=== PATIENT | female | born 1955 | race Caucasian/White ===

== ENCOUNTER 2018-06-11 13:04 | Day surgery (SDC) | payer MEDICARE, MEDICAID ==
[~2018-06-11] VITALS: Ht 167.6 cm; Wt 122.7 kg
[2018-06-11] MEDS ORDERED: fentaNYL/PF 50MCG/1 ML 2ML syringe ONE (13:15)
[2018-06-11] MEDS ORDERED: MIDAZolam 5mg/5ml vial ONE (13:15)
[2018-06-11] MEDS ORDERED: LIDOcaine Viscous 15ml cup ONE (13:15)
[2018-06-11 13:20] VITALS: BP 143/78
[2018-06-11] MEDS ORDERED: ATEN25TA PO (13:25)
[2018-06-11] MEDS ORDERED: BUPR300T54 PO (13:25)
[2018-06-11] MEDS ORDERED: [UNRECOGNIZED DRUG - OTHER] (13:30)
[2018-06-11] MEDS ORDERED: CYCL-1 PO (13:32)
[2018-06-11] MEDS ORDERED: LISI1TAB9 PO (13:33)
[2018-06-11] MEDS ORDERED: ESTR1TAB19 PO (13:33)
[2018-06-11] MEDS ORDERED: HYDR-4353 PO (13:34)
[2018-06-11 14:06] VITALS: BP 140/80
[2018-06-11 14:36] VITALS: BP 147/60
[2018-06-11 14:46] VITALS: BP 139/63
[2018-06-11 14:56] VITALS: BP 145/61
== END 2018-06-11 15:06 | disposition home or self-care (01) ==
LOC: GI LAB 13:04
PROVIDERS: ATTEND Internal Medicine Gastroenterology
DX: D12.0 Benign neoplasm of cecum (principal); K57.30 Diverticulosis of large intestine without perforation or abscess without bleeding; K29.50 Unspecified chronic gastritis without bleeding; D50.9 Iron deficiency anemia, unspecified; K29.80 Duodenitis without bleeding; K31.89 Other diseases of stomach and duodenum; M79.7 Fibromyalgia; I10 Essential (primary) hypertension; Z90.49 Acquired absence of other specified parts of digestive tract; Z90.710 Acquired absence of both cervix and uterus; Z86.69 Personal history of other diseases of the nervous system and sense organs; Z90.89 Acquired absence of other organs; Z79.891 Long term (current) use of opiate analgesic; Z98.890 Other specified postprocedural states; Z79.899 Other long term (current) drug therapy
CPT/HCPCS: 43239; 45385; 99153; G0500; J2250; J3010; J7030; 43251; 99152; A4620

== ENCOUNTER 2021-04-19 17:54 | Emergency (ER) | payer MEDICARE, MEDICAID ==
[~2021-04-19] VITALS: Ht 167.6 cm; Wt 96.2 kg
[~2021-04-19 17:54] MED LIST: ATEN25TA PO; BUPR300T99 PO; CYCL-1 PO; ESTR1TAB19 PO; HYDR-4353 PO; LISI1TAB32 PO; [UNRECOGNIZED DRUG - OTHER]
[2021-04-19 18:25] LABS: BASOPHILS # (AUTO) 0.1 X10'3 (0-0.2); BASOPHILS % (AUTO) 0.8 % (0-1); EOSINOPHILS # (AUTO) 0.1 X10'3 (0-0.9); EOSINOPHILS % (AUTO) 0.7 % (0-6); HEMATOCRIT 41.4 % (35.0-45.0); HEMOGLOBIN 13.9 g/dl (12.0-16.0); LYMPHOCYTES # (AUTO) 1.3 X10'3 (1.1-4.8); LYMPHOCYTES % (AUTO) 16.7 % (21-51); MEAN CORPUSCULAR HEMOGLOBIN 30.5 PG (27.0-31.0); MEAN CORPUSCULAR HGB CONC 33.6 g/dL (33.0-36.5); MEAN CORPUSCULAR VOLUME 90.7 FL (78-98); MEAN PLATELET VOLUME 9.6 FL (7.4-10.4); MONOCYTES # (AUTO) 0.9 X10'3 (0-0.9); MONOCYTES % (AUTO) 11.8 % (2-12); NEUTROPHILS # (AUTO) 5.6 X10'3 (1.8-7.7); PLATELET COUNT 179 X10'3 (140-440); RED BLOOD COUNT 4.56 X10'6 (4.20-5.60); WHITE BLOOD COUNT 7.9 X10'3 (4.5-11.0)
[2021-04-19 18:47] LABS: ALANINE AMINOTRANSFERASE 19 U/L (12-78); ALBUMIN 3.8 G/DL (3.4-5.0); ALBUMIN/GLOBULIN RATIO 0.9 (1.1-1.5); ALKALINE PHOSPHATASE 55 IU/L (46-116); ANION GAP 10 (8-16); ASPARTATE AMINO TRANSFERASE 17 U/L (10-37); BILIRUBIN,TOTAL 0.5 MG/DL (0.1-1.0); BLOOD UREA NITROGEN 15 MG/DL (7-18); BUN/CREATININE RATIO 16.7 (6.6-38.0); CALCIUM 9.1 MG/DL (8.5-10.1); CHLORIDE 104 MMOL/L (99-107); GLUCOSE 90 MG/DL (70-104); LIPASE 105 U/L (73-393); POTASSIUM 4.2 MMOL/L (3.5-5.1); SODIUM 141 MMOL/L (135-145); TOTAL CARBON DIOXIDE 27.3 MMOL/L (24-32); TOTAL PROTEIN 7.9 G/DL (6.4-8.2); eGFR 63 ML/MIN
[2021-04-19 19:12] LABS: CLARITY,URINE SLIGHTLY CLOUDY (Clear); COLOR,URINE YELLOW (Yellow); GLUCOSE, URINE NEGATIVE (Neg); KETONES,URINE NEGATIVE (Neg); LEUKOCYTE ESTERASE ,URINE NEGATIVE (Neg); NITRITES, URINE NEGATIVE (Neg); OCCULT BLOOD,URINE TRACE-INTACT (Neg); PROTEIN,URINE NEGATIVE (Neg)
[2021-04-19 19:19] LABS: UA COLLECTION TYPE CLN CATCH MIDSTREAM
[2021-04-19] MEDS ORDERED: iohexol 300mg/ml 100ml inj. ONE (19:20)
[2021-04-19 19:22] LABS: BACTERIA,URINE NONE SEEN /HPF (Neg); RBC,URINE 0-2 /HPF (0-2); SQUAMOUS EPITHELIAL CELL,UR NONE SEEN /LPF (FEW); WBC,URINE 0-4 /HPF (0-4)
--- NOTE | 2021-04-19 20:16 | NUR ---
ED provider at bedside for patient reassessment and discussion of plan of care.
[2021-04-19] MEDS ORDERED: amox tr/potassium clavulanate 875/125mg TAB PO ONE (20:20)
[2021-04-19] MEDS ORDERED: AMOX-422 PO (20:22)
[2021-04-19 20:35] VITALS: BP 114/72
== END 2021-04-19 20:36 | disposition home or self-care (01) ==
LOC: ER 17:55
DX: K57.92 Diverticulitis of intestine, part unspecified, without perforation or abscess without bleeding (principal); R10.31 Right lower quadrant pain; Z90.49 Acquired absence of other specified parts of digestive tract; Z98.891 History of uterine scar from previous surgery; Z90.710 Acquired absence of both cervix and uterus; Z91.040 Latex allergy status; Z79.899 Other long term (current) drug therapy
CPT/HCPCS: 36415; 74177; 80053; 81001; 83690; 85025; 99285; Q9967

== ENCOUNTER 2023-06-09 17:56 | Emergency (ER) | payer MEDICARE, MEDICAID ==
[~2023-06-09] VITALS: Ht 165.1 cm; Wt 122.7 kg
[~2023-06-09 17:56] MED LIST changes: -LISI1TAB32 PO; +LISI1TAB49 PO
[2023-06-09] MEDS ORDERED: oxymetazoline 15 ML nasal spray NS ONE (18:40)
[2023-06-09 19:32] LABS: BASOPHILS # (AUTO) 0.1 X10'3 (0-0.2); BASOPHILS % (AUTO) 1.1 % (0-1); EOSINOPHILS # (AUTO) 0.1 X10'3 (0-0.9); EOSINOPHILS % (AUTO) 1.9 % (0-6); HEMATOCRIT 38.5 % (35.0-45.0); HEMOGLOBIN 13.2 g/dl (12.0-16.0); LYMPHOCYTES # (AUTO) 1.5 X10'3 (1.1-4.8); LYMPHOCYTES % (AUTO) 27.4 % (21-51); MEAN CORPUSCULAR HEMOGLOBIN 31.7 PG (27.0-31.0); MEAN CORPUSCULAR HGB CONC 34.2 g/dL (33.0-36.5); MEAN CORPUSCULAR VOLUME 92.9 FL (78-98); MONOCYTES # (AUTO) 0.7 X10'3 (0-0.9); MONOCYTES % (AUTO) 12.3 % (2-12); NEUTROPHILS % (AUTO) 57.3 % (42-75); PLATELET COUNT 184 X10'3 (140-440); RED BLOOD COUNT 4.15 X10'6 (4.20-5.60); RED CELL DISTRIBUTION WIDTH 15.3 % (11.5-14.5); WHITE BLOOD COUNT 5.3 X10'3 (4.5-11.0)
[2023-06-09 19:44] LABS: ALANINE AMINOTRANSFERASE 38 U/L (12-78); ALBUMIN 3.8 G/DL (3.4-5.0); ALBUMIN/GLOBULIN RATIO 0.9 (1.1-1.5); ALKALINE PHOSPHATASE 67 IU/L (46-116); ANION GAP 8 (8-16); ASPARTATE AMINO TRANSFERASE 31 U/L (10-37); BILIRUBIN,TOTAL 0.4 MG/DL (0.1-1.0); BLOOD UREA NITROGEN 15 MG/DL (7-18); BUN/CREATININE RATIO 13.6 (10.0-20.0); CALCIUM 9.7 MG/DL (8.5-10.1); CHLORIDE 103 MMOL/L (99-107); GLUCOSE 115 MG/DL (70-104); POTASSIUM 3.3 MMOL/L (3.5-5.1); SODIUM 140 MMOL/L (135-145); TOTAL CARBON DIOXIDE 29.3 MMOL/L (24-32); TOTAL PROTEIN 7.9 G/DL (6.4-8.2); eCRCL 45 ML/MIN; eGFR 50 ML/MIN
[2023-06-09 20:30] VITALS: BP 158/81; PULSE 94; RESP 18; TEMP 98; O2SAT 93
== END 2023-06-09 20:34 | disposition home or self-care (01) ==
LOC: ER 17:57
DX: R04.0 Epistaxis (principal); Z91.040 Latex allergy status; Z79.899 Other long term (current) drug therapy
CPT/HCPCS: 36415; 80053; 85025; 99283

== ENCOUNTER 2025-02-09 04:54 | Emergency (ER) | payer MEDICARE, MEDICAID ==
[~2025-02-09] VITALS: Ht 167.6 cm; Wt 110.0 kg
[~2025-02-09 04:54] MED LIST changes: +BUPR-551 PO; -BUPR300T99 PO
--- NOTE | 2025-02-09 05:31 | ELECTROCARDIOGRAPH REPORT ---
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
--- NOTE | 2025-02-09 06:46 | RADIOLOGY REPORT ---
EXAM: XR Chest, 1 View CLINICAL INDICATION: Pain TECHNIQUE: Frontal view of the chest. COMPARISON: No relevant prior studies available. FINDINGS: LUNGS AND PLEURAL SPACES: Unremarkable. No consolidation. No pneumothorax. HEART: Unremarkable. No cardiomegaly. MEDIASTINUM: Unremarkable. Normal mediastinal contour. BONES/JOINTS: Unremarkable. No acute fracture. IMPRESSION: No acute cardiopulmonary process.
[2025-02-09 07:55] LABS: BASOPHILS # (AUTO) 0.1 X10'3 (0-0.2); BASOPHILS % (AUTO) 1.2 % (0-1); EOSINOPHILS # (AUTO) 0.1 X10'3 (0-0.9); EOSINOPHILS % (AUTO) 1.1 % (0-6); HEMATOCRIT 35.8 % (35.0-45.0); HEMOGLOBIN 12.3 g/dl (12.0-16.0); LYMPHOCYTES # (AUTO) 1.4 X10'3 (1.1-4.8); LYMPHOCYTES % (AUTO) 27.5 % (21-51); MEAN CORPUSCULAR HEMOGLOBIN 30.6 PG (27.0-31.0); MEAN CORPUSCULAR HGB CONC 34.4 g/dL (33.0-36.5); MEAN PLATELET VOLUME 9.8 FL (7.4-10.4); MONOCYTES # (AUTO) 0.7 X10'3 (0-0.9); MONOCYTES % (AUTO) 13.4 % (2-12); NEUTROPHILS # (AUTO) 2.8 X10'3 (1.8-7.7); NEUTROPHILS % (AUTO) 56.8 % (42-75); PLATELET COUNT 151 X10'3 (140-440); RED BLOOD COUNT 4.03 X10'6 (4.20-5.60); RED CELL DISTRIBUTION WIDTH 14.1 % (11.5-14.5); WHITE BLOOD COUNT 4.9 X10'3 (4.5-11.0)
[2025-02-09 08:16] LABS: ALBUMIN 3.6 G/DL (3.4-5.0); ANION GAP 6 (8-16); BLOOD UREA NITROGEN 24 MG/DL (7-18); BUN/CREATININE RATIO 26.1 (10.0-20.0); CALCIUM 9.4 MG/DL (8.5-10.1); CHLORIDE 105 MMOL/L (99-107); CREATININE 0.92 MG/DL (0.40-0.90); GLUCOSE 102 MG/DL (70-104); POTASSIUM 3.3 MMOL/L (3.5-5.1); SODIUM 140 MMOL/L (135-145); TOTAL CARBON DIOXIDE 28.8 MMOL/L (24-32); eCRCL 55 ML/MIN; eGFR 61 ML/MIN
--- NOTE | 2025-02-09 08:33 | Physician Documentation ---
History of Present Illness ~ Chief Complaint: See Chief Complaint Stated Complaint: NEAR SYNCOPE Time Seen by MD: 08:21 Primary Medical Doctor: AIXA MEDINA AT [facility] Mode of Arrival: POV HPI 69-year-old female presenting for a near syncopal event. Patient states that last night she got up to go use the restroom and when she was on her feet she st arted feeling very lightheaded. She describes feeling a cold sensation pass over her and she felt like she was going to pass out. She did not actually lose consciousness and immediately sat down and then woke up her . She denies any chest pain, shortness of breath, fever, chills or any other associated symptoms. Currently she states that she feels tired but otherwise feels fine. Medication Reconciliation Allergies: Coded Allergies: latex (Verified Allergy, Unknown, 02/09/25) RASH Scheduled Atenolol (Atenolol), 1 TAB PO DAILY, (Reported) Bupropion HCl (Bupropion Xl), 1 TABLET PO QAM, (Reported) Estradiol (Estradiol), 1 TAB PO DAILY, (Reported) Hydrocodone Bit/Acetaminophen (Drew 10-325 Tablet), 1 TAB PO Q6H, (Reported) Lisinopril/Hydrochlorothiazide (Lisinopril-Hctz 10-12.5 mg Tab), 1 TAB PO DAILY, (Reported) [Trentalex], 20 MG QDAY, (Reported) Scheduled PRN Cyclobenzaprine* (Cyclobenzaprine*), 2 TABLET PO DAILY PRN for muscle spasms, (Reported) Past Medical History Past Medical History: *GI/HEPATOBILIARY* Past Surgical History: appendectomy, , hysterectomy Alcohol Use: None Drug Use: none Lives with: Family Lives In: Home Review of Systems All Other Systems at this time: Reviewed and Negative Physical Exam Vital Signs: Temperature: 96.3, Source: Temporal, Heart Rate: 59, Respiratory Rate: 16, BP: 124/51, Pulse Oximetry: 99, Weight: 110.000 Oxygen Flow Rate: 0 Physical Exam I have reviewed the triage vitals. CONST: Well developed and well nourished. In no acute distress HENT: Head Atraumatic EYES: Pupils are equal, round and reactive to light. Normal conjunctiva NECK: Normal range of motion. Supple. CARDIO: Normal rate and regular rhythm. No murmurs, rubs, or gallops. S1, S2. PULM/CHEST: No respiratory distress. Lungs clear to auscultation. No wheeze ABD: Soft and nontender. Nondistended. Bowel sounds normal. No guarding. : Exam deferred MSK: No edema. No deformity. NEURO: Alert and oriented to person, place and time. Moving all extremities SKIN: Warm and dry. PSYCH: Normal mood and affect. Good eye contact. Progress Results/Orders Results/Orders Orders - MICKEY RICHARDSON MD Ct Head (02/09/25 09:05) Completed Orders - MICKEY RICHARDSON MD Ct Head (02/09/25 09:05) Normal Saline 1000ml (Sodium Chloride 10 (02/09/25 08:30) Potassium Cl Sr Tablet (K-Dur Tablet) (02/09/25 08:29) Medications Received in ER Medications (Trade) Dose Ordered Sig/Juancho Route PRN Reason Start Time Stop Time Status Last Admin Dose Admin Sodium Chloride 1,000 ml @ 1,000 mls/hr ONCE ONCE IV 02/09/25 08:30 02/09/25 09:29 DC 02/09/25 09:56 1,000 MLS/HR (K-DUR tablet) 20 meq ONCE STAT PO 02/09/25 08:29 02/09/25 08:31 DC 02/09/25 09:56 20 MEQ Vital Signs 02/09/25 02/09/25 02/09/25 02/09/25 04:57 06:44 06:46 07:00 Temp 96.3 98.1 Pulse 59 59 62 Resp 15 18 16 19 B/P (MAP) 136/50 124/51 (75) 103/44 (63) Pulse Ox 100 99 94 O2 Flow Rate 0 0 02/09/25 02/09/25 02/09/25 02/09/25 07:30 08:00 08:30 09:00 Pulse 53 53 58 52 Resp 17 17 15 15 B/P (MAP) 106/50 (68) 106/53 (70) 102/43 (62) Pulse Ox 94 93 98 93 O2 Flow Rate 0 0 0 0 Laboratory Tests Test 02/09/25 07:19 02/09/25 10:41 White Blood Count 4.9 Red Blood Count 4.03 L Hemoglobin 12.3 Hematocrit 35.8 Mean Corpuscular Volume 89.0 Mean Corpuscular Hemoglobin 30.6 Mean Corpuscular Hemoglobin Concent 34.4 Red Cell Distribution Width 14.1 Platelet Count 151 Mean Platelet Volume 9.8 Neutrophils (%) (Auto) 56.8 Lymphocytes (%) (Auto) 27.5 Monocytes (%) (Auto) 13.4 H Eosinophils (%) (Auto) 1.1 Basophils (%) (Auto) 1.2 H Neutrophils # (Auto) 2.8 Lymphocytes # (Auto) 1.4 Monocytes # (Auto) 0.7 Eosinophils # (Auto) 0.1 Basophils # (Auto) 0.1 CBC Comment Sodium Level 140 Potassium Level 3.3 L Chloride Level 105 Carbon Dioxide Level 28.8 Anion Gap 6 L Blood Urea Nitrogen 24 H Creatinine 0.92 H Estimated GFR/1.73 m2 61 BUN/Creatinine Ratio 26.1 H Glucose Level 102 Calcium Level 9.4 Troponin I High Sensitivity 6 7 Albumin 3.6 Chemistry Comments Troponin I High Sens Percent Delta 16 Troponin I Hi Sens Absolute Change 1 EKG/XRAY/CT/US/VASC/MRI EKG : Additional Comment EKG as interpreted by me showing normal sinus rhythm with a rate of 60 beats per minute, normal axis, no ischemia Chest X-Ray : Additional Comments EXAM: XR Chest, 1 View CLINICAL INDICATION: Pain TECHNIQUE: Frontal view of the chest. COMPARISON: No relevant prior studies available. FINDINGS: LUNGS AND PLEURAL SPACES: Unremarkable. No consolidation. No pneumothorax. HEART: Unremarkable. No cardiomegaly. MEDIASTINUM: Unremarkable. Normal mediastinal contour. BONES/JOINTS: Unremarkable. No acute fracture. IMPRESSION: No acute cardiopulmonary process. Ultrasound : Impression EXAM: CT CT HEAD HISTORY: Near Syncope COMPARISON: None TECHNIQUE: Noncontrast axial CT images of the head were performed. Sagittal and coronal reformatted images were obtained. This CT exam was performed using 1 or more of the following dose reduction techniques: Automated exposure control, adjustment of the mA and/or kv according to patient size, or the use of iterative reconstruction techniques. Radiation Dose: CTDI volume is 51.66 mGy. Dose-length product is 843.55 mGy*cm FINDINGS: No intracranial hemorrhage, mass, midline shift, hydrocephalus, or evidence of acute large vessel infarct. There is mild global brain atrophy. The partially- visualized paranasal sinuses are clear. There is sclerosis of the right mastoid air cells caudally. 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 The bilateral middle ear spaces and external auditory canals are clear. There is mild adenoid tonsillar hypertrophy. No cranial fracture or scalp edema. IMPRESSION: 1. No acute intracranial process. 2. 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 Medical Decision Making Additional Information 69-year-old female presenting with near syncope. Head CT was unremarkable. Chest x-ray was negative. Lab workup does indicate a slightly low potassium level. This was replaced. Patient was also given IV normal saline 1 L. after the medication the patient was markedly improved. Her vital signs are normal and she feels clinically well aside from being slightly tired which is attributed to the fact that she did not sleep very much last night. At this p oint in time I believe she is stable and safe to be discharged home as her workup is largely negative. I suspect that her near-syncope was likely secondary to some partial vasovagal symptoms versus this slightly low potassium. As she feels much better, is clinically well and stable and her workup is negative I believe she is stable and safe for discharge home. Advised the patient to go home and get some rest and drink plenty of fluids. Follow up closely with primary care physician in the next 2-3 days. Return to the ED with any acutely worsening symptoms. Departure Disposition: 01 HOME / SELF CARE / HOMELESS Impression: Primary Impression: Near syncope Additional Impression: Hypokalemia Condition: Improved Discharge Instructions: Near-Syncope Referrals: NO PRIMARY CARE PROVIDER (PCP) Signature Scribe Signature: 1 Attestation: 1 MICKEY RICHARDSON MD Feb 09, 2025 08:33
--- NOTE | 2025-02-09 09:43 | RADIOLOGY REPORT ---
EXAM: CT CT HEAD HISTORY: Near Syncope COMPARISON: None TECHNIQUE: Noncontrast axial CT images of the head were performed. Sagittal and coronal reformatted i mages were obtained. This CT exam was performed using 1 or more of the following dose reduction techn iques: Automated exposure control, adjustment of the mA and/or kv according to patient size, or the u se of iterative reconstruction techniques. Radiation Dose: CTDI volume is 51.66 mGy. Dose-length product is 843.55 mGy*cm FINDINGS: No intracranial hemorrhage, mass, midline shift, hydrocephalus, or evidence of acute large vessel inf arct. There is mild global brain atrophy. The partially-visualized paranasal sinuses are clear. There is sclerosis of the right mastoid air cells caudally. 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 The bilateral middle ear spaces and external auditory canals are clear. There is mild adenoid tonsillar hypertrophy. No cranial fracture or scalp edema. IMPRESSION: 1. No acute intracranial process. 2. 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
[2025-02-09] MEDS: normal saline 1000ml 1,000 ML IV ONE (09:56)
[2025-02-09] MEDS: potassium Cl 20 mEq SR tablet PO STA (09:56)
[2025-02-09 12:35] VITALS: BP 110/66; PULSE 56; RESP 16; TEMP 98; O2SAT 98
== END 2025-02-09 12:36 | disposition home or self-care (01) ==
LOC: ER 04:55
DX: R55 Syncope and collapse (principal); E87.6 Hypokalemia; Z88.8 Allergy status to other drugs, medicaments and biological substances; Z90.49 Acquired absence of other specified parts of digestive tract; Z90.710 Acquired absence of both cervix and uterus
CPT/HCPCS: 36415; 70450; 71045; 80048; 84484; 85025; 93005; 96360; 99285; J7030